=== PATIENT | female | born 1950 | race Caucasian/White ===

== ENCOUNTER 2018-11-23 07:49 | Day surgery (SDC) | payer MEDICARE, OTHER ==
[2018-11-23] MEDS ORDERED: Sodium Chloride 0.9% 10 ML Syringe FLUSH PRN (08:00)
[2018-11-23] MEDS ORDERED: Lactated Ringers 1,000 ML IV SCH (08:00)
[2018-11-23] MEDS ORDERED: Propofol 200 MG/20 ML SDV ONE ×2 (08:14→09:20)
[2018-11-23] MEDS ORDERED: Midazolam 1 MG/ML 2 ML SDV ONE ×2 (08:14→09:20)
--- NOTE | 2018-11-23 09:21 | PCM.HPR ---
H & P Addendum review - H & P Addendum Review Date of Original H & P: 11/09/18 Date Reviewed: 11/23/18 Time Reviewed: 09:05 Patient was Examined: No Changes
--- NOTE | 2018-11-23 09:55 | PCM.OPNOTE ---
- General Post-Op/Procedure Note Date of Surgery/Procedure: 11/23/18 Operative Procedure(s): R CTR Pre Op Diagnosis: R CTS Post-Op Diagnosis: Same Anesthesia Technique: Local, MAC Primary Surgeon: Osiel Joseph Anesthesia Provider: Danika Rodrigues EBAshli in mLs: 0 Complications: None Condition: Good
--- NOTE | 2018-11-23 14:14 | OR ---
Date of Procedure: 11/23/2018 PREOPERATIVE DIAGNOSIS: Right carpal tunnel syndrome. POSTOPERATIVE DIAGNOSIS: Right carpal tunnel syndrome. PROCEDURE: Right carpal tunnel release. ANESTHESIA: Local with IV sedation. PROCEDURE IN DETAIL: The patient was brought to the operating room where IV sedation was administered. Right upper extremity was exsanguinated and the tourniquet inflated. The hand was prepped and draped sterilely. 1% lidocaine was used for local anesthesia. An incision was made in the skin crease over the transverse carpal ligament and extended through the subcutaneous tissue and palmar aponeurosis. The transverse carpal ligament was identified and sharply incised until the median nerve was visible. The ligament was split distally into the palm. Then proximally into the wrist. Inspection and finger palpation revealed all constricting bands to be released. The wound was irrigated and closed with interrupted 4-0 Prolene vertical mattress sutures and antibiotic ointment and a bulky sterile pressure dressing was applied. The patient tolerated the procedure well and returned to recovery in stable condition. ESTIMATED BLOOD LOSS: None. RUBINA HESS MD /[id number]
[2018-11-23 16:32] VITALS: BP 149/69
== END 2018-11-23 11:11 | disposition home or self-care (01) ==
LOC: LL.SDS 07:49
PROVIDERS: ATTEND Surgery
DX: G56.01 Carpal tunnel syndrome, right upper limb (principal); I10 Essential (primary) hypertension; E03.9 Hypothyroidism, unspecified; F32.9 Major depressive disorder, single episode, unspecified; F41.9 Anxiety disorder, unspecified; K58.9 Irritable bowel syndrome, unspecified; F17.200 Nicotine dependence, unspecified, uncomplicated; Z79.899 Other long term (current) drug therapy; Z88.5 Allergy status to narcotic agent; Z91.041 Radiographic dye allergy status
CPT/HCPCS: 01810; J2001; J2250; J2704; J7120

== ENCOUNTER 2020-10-16 08:50 | Day surgery (SDC) | payer MEDICARE, OTHER ==
[2020-10-14 15:56] LABS: CORONAVIRUS COVID-19 NAA NEGATIVE (NEGATIVE)
[~2020-10-16 08:50] MED LIST: Sodium Chloride 0.9% 10 ML Syringe FLUSH PRN
[2020-10-16] MEDS ORDERED: Propofol 200 MG/20 ML SDV ONE ×3 (09:26→11:34)
[2020-10-16] MEDS: Lactated Ringers 1,000 ML IV SCH (10:05)
--- NOTE | 2020-10-16 10:35 | PCM.PN ---
- General Info Date of Service: 10/16/20 - Review of Systems Systems Review Comment:: 69-year-old female here for colonoscopy. She has a history of colon polyps. Her last colonoscopy was over 5 years ago. She denies any recent change in bowel pattern. She is medically stable to proceed today. Her recent history and physical is reviewed and no significant changes are noted. I have discussed the proposed colonoscopy with the patient. Risks discussed. She agrees to proceed. - Patient Data Vitals - Most Recent: Last Vital Signs Temp 98.0 F 10/16/20 10:06 Pulse 74 10/16/20 10:06 Resp 16 10/16/20 10:06 BP 167/93 H 10/16/20 10:06 Pulse Ox 97 10/16/20 10:06 Weight - Most Recent: 90.265 kg Med Orders - Current: Current Medications Lactated Ringer's (Ringers, Lactated) 1,000 mls @ 125 mls/hr IV ASDIRECTED PAUL Last Admin: 10/16/20 10:05 Dose: 125 mls/hr Documented by: Sodium Chloride (Saline Flush) 10 ml FLUSH ASDIRECTED PRN PRN Reason: Keep Vein Open Discontinued Medications Propofol (Diprivan 20 Ml) Confirm Administered Dose 400 mg .ROUTE .STK-MED ONE Stop: 10/16/20 09:27 Sepsis Event Note - Focused Exam Vital Signs: Vital Signs Temp Pulse Resp BP Pulse Ox 10/16/20 10:06 98.0 F 74 16 167/93 H 97 - Problem List Review Problem List Initiated/Reviewed/Updated: Yes - Assessment Assessment:: History of colon polyps - Plan Plan:: Colonoscopy
--- NOTE | 2020-10-16 11:38 | PCM.OPNOTE ---
- General Post-Op/Procedure Note Date of Surgery/Procedure: 10/16/20 Operative Procedure(s): Colonoscopy with Polypectomy Findings: Multiple colon polyps Moderate sized hemorrhoids Pre Op Diagnosis: History of colon polyps Post-Op Diagnosis: Multiple colon polyps. Hemorrhoids Anesthesia Technique: MAC Primary Surgeon: Davis Dorsey Pathology: Multiple colon polyps EBL in mLs: 0 Complications: None Condition: Good
[2020-10-16 13:50] VITALS: BP 149/59; PULSE 64
--- NOTE | 2020-10-16 13:56 | OR ---
Date of Procedure: 10/16/2020 PREOPERATIVE DIAGNOSIS: History of colon polyps. POSTOPERATIVE DIAGNOSES: Colon polyps, hemorrhoids. OPERATIONS PERFORMED: Colonoscopy with polypectomy. INDICATIONS FOR SURGERY: This 69-year-old female is seen today for surveillance colonoscopy. She has a prior history of colon polyps. FINDINGS: The patient has multiple polyps noted on today's exam. She has a cluster of 4 semipedunculated polyps in the mid transverse colon. These range in size from 6 to 8 mm. She has a larger 2 cm pedunculated polyp in the cecum and she has a cluster of polyps in the proximal ascending colon, 4 polyps are in this area. These range in size from 5 to 10 mm. She also has a 6-mm polyp in the sigmoid colon 20 cm from the anal verge. The colon otherwise appears normal. The patient does have moderate-sized internal and external hemorrhoids. PROCEDURE IN DETAIL: The patient was taken to the operating room. She was given intravenous sedation, and with her in the left lateral decubitus position, digital rectal exam was performed showing no rectal masses. The Olympus colonoscope was inserted into the rectum. Retroflexed examination of the rectal canal was performed. The scope was then carefully advanced under direct visualization through the entire length of the colon until the cecum was reached. Cecal acquisition was confirmed by noting normal internal cecal anatomy including the appendiceal orifice and the ileocecal valve. After examining the cecum, the scope was slowly withdrawn sequentially re-examining the colonic segments until the entire colon and rectum had been fully examined. As the above-described polyps were encountered, they were removed with a cautery snare and retrieved. The larger polyp in the cecum was removed piecemeal, but all polyps appeared to be completely removed during the exam. After the procedure was completed and with no sign of any bleeding or other complication, the scope was removed and the patient was taken from the operating room in satisfactory condition. ESTIMATED BLOOD LOSS: Zero. COMPLICATIONS: None. PROGNOSIS: Good. RUBINA Dorsey MD /[id number]
== END 2020-10-16 12:51 | disposition home or self-care (01) ==
LOC: LL.SDS 08:50
PROVIDERS: ATTEND Surgery
DX: D12.2 Benign neoplasm of ascending colon (principal); D12.3 Benign neoplasm of transverse colon; D12.0 Benign neoplasm of cecum; K64.8 Other hemorrhoids; K64.4 Residual hemorrhoidal skin tags; Z20.822 Contact with and (suspected) exposure to COVID-19; E03.9 Hypothyroidism, unspecified; E66.9 Obesity, unspecified; Z86.010 Personal history of colon polyps; I10 Essential (primary) hypertension; F17.210 Nicotine dependence, cigarettes, uncomplicated; Z01.812 Encounter for preprocedural laboratory examination; Z68.33 Body mass index [BMI] 33.0-33.9, adult; E78.00 Pure hypercholesterolemia, unspecified; G35 Multiple sclerosis; Z88.5 Allergy status to narcotic agent; Z91.041 Radiographic dye allergy status; Z79.890 Hormone replacement therapy; Z79.899 Other long term (current) drug therapy; Z79.82 Long term (current) use of aspirin; Z90.49 Acquired absence of other specified parts of digestive tract; Z98.890 Other specified postprocedural states
CPT/HCPCS: 00811; 88305; J2704; J7120; U0002

== ENCOUNTER 2024-03-15 15:19 | Observation (INO) | payer MEDICARE, OTHER ==
[2024-03-15 16:49] LABS: BASOPHILS ABSOLUTE AUTO 0.01 K/uL (0.00-0.20); BASOPHILS PERCENT AUTO 0.1 % (0.0-2.0); EOSINOPHILS ABSOLUTE AUTO 0.05 K/uL (0.00-0.50); EOSINOPHILS PERCENT AUTO 0.4 % (0.0-5.0); HEMATOCRIT 35.8 % (34.0-46.0); HEMOGLOBIN 11.4 g/dL (11.7-15.5); LYMPHOCYTES ABSOLUTE AUTO 0.57 K/uL (0.50-3.50); MEAN CORPUSCULAR HEMOGLOBIN 29.5 pg (28.2-33.3); MEAN CORPUSCULAR HGB CONC 31.8 g/dL (31.7-36.0); MEAN CORPUSCULAR VOLUME 92.5 fL (84.0-98.0); MONOCYTES ABSOLUTE AUTO 1.62 K/uL (0.00-1.00); MONOCYTES PERCENT AUTO 11.4 % (2.0-14.0); NEUTROPHILS ABSOLUTE AUTO 12.02 K/uL (1.40-7.00); NEUTROPHILS PERCENT AUTO 84.1 % (45.0-80.0); PLATELET COUNT,PLT 317 K/uL (150-350); RED BLOOD CELL COUNT 3.87 M/uL (3.77-5.09); RED CELL DISTRIBUTION WIDTH 13.2 % (11.2-14.1); WHITE BLOOD CELL COUNT,WBC 14.3 K/uL (4.0-10.2)
[2024-03-15 17:05] LABS: PROTHROMBIN TIME 9.7 SEC (9.0-11.1)
[2024-03-15 17:09] LABS: ALBUMIN 2.5 g/dL (3.4-5.0); BILIRUBIN TOTAL 0.6 mg/dL (0.2-1.0); C-REACTIVE PROTEIN 18.53 mg/dL (0.05-0.30); CALCIUM 8.8 mg/dL (8.5-10.1); CARBON DIOXIDE,CO2 26.2 mmol/L (21.0-32.0); CREATININE 0.94 mg/dL (0.51-1.17); EST CRCL DRUG DOSING (CG) 49.9 mL/min; PROTEIN TOTAL,TP 6.8 g/dL (6.4-8.2)
[2024-03-15 17:12] LABS: ANION GAP 13.6 meq/L (7-15); POTASSIUM,K 2.8 mmol/L (3.5-5.1)
[2024-03-15 17:28] LABS: APPEARANCE,URINE SLIGHTLY CLOUDY; BILIRUBIN,URINE NEGATIVE (NEGATIVE); COLOR,URINE YELLOW; GLUCOSE,URINE NEGATIVE (NEGATIVE); KETONES,URINE NEGATIVE (NEGATIVE); LEUKOCYTE ESTERASE,URINE LARGE (NEGATIVE); NITRITE,URINE NEGATIVE (NEGATIVE); OCCULT BLOOD,URINE SMALL (NEGATIVE); PROTEIN,URINE 30 mg/dL (NEGATIVE)
[2024-03-15] MEDS ORDERED: Ondansetron 4 MG/2 ML SDV IVPUSH PRN (17:29)
[2024-03-15] MEDS: Potassium Chloride Riders 10 MEQ in Premix Bag 1 BAG IV SCH (17:33)
[2024-03-15] MEDS: Potassium Bicarbonate/Cit Ac 20 MEQ Effervescent Tab PO ONE ×3 (17:33→19:52)
[2024-03-15 17:38] LABS: BACTERIA,URINE MODERATE /HPF (NONE TO FEW); EPITHELIAL CELLS,URINE RARE /LPF; RBC,URINE 0-5 /HPF; WBC,URINE >100 /HPF
[2024-03-15] MEDS: Sodium Chloride 0.9% 1,000 ML IV SCH (17:40)
[2024-03-15] MEDS ORDERED: Famotidine 20 MG Tab PO PRN (19:47)
[2024-03-15] MEDS ORDERED: LORazepam 1 MG Tab PO PRN (19:47)
[2024-03-15] MEDS ORDERED: ALPRAZolam 0.25 MG Tab PO PRN (19:47)
[2024-03-15 20:34] LABS: MAGNESIUM 1.8 mg/dL (1.8-2.4); POTASSIUM,K 3.6 mmol/L (3.5-5.1)
[2024-03-15] MEDS: Acetaminophen 650 MG Tab.ER PO SCH (20:36)
[2024-03-15] MEDS: Gabapentin 300 MG Cap PO SCH (20:36)
[2024-03-15] MEDS: atorvaSTATin 20 MG Tab PO SCH (20:37)
[2024-03-15] MEDS: ALPRAZolam 0.25 MG Tab PO PRN (20:37)
[2024-03-15] MEDS: Cholestyramine/Sucrose Powder 4 GM Packet PO SCH (21:02)
[2024-03-15] MEDS: Non-Formulary Medication 1 Each (Melatonin [Melatonin] 10 MG Tablet) PO SCH (21:02)
[2024-03-15] MEDS: Melatonin 3 MG Tab PO SCH (22:22)
[2024-03-16 07:56] LABS: CARBON DIOXIDE,CO2 32.4 mmol/L (21.0-32.0); CREATININE 1.05 mg/dL (0.51-1.17); EST CRCL DRUG DOSING (CG) 44.67 mL/min; POTASSIUM,K 3.9 mmol/L (3.5-5.1)
[2024-03-16 07:58] LABS: ANION GAP 10.5 meq/L (7-15)
[2024-03-16] MEDS ORDERED: Gabapentin 300 MG Cap PO SCH (08:00)
[2024-03-16] MEDS ORDERED: Non-Formulary Medication 1 Each (Duloxetine [Cymbalta] 60 MG Cap) PO SCH (08:00)
[2024-03-16 08:15] VITALS: BP 152/94; PULSE 98
[2024-03-16] MEDS: prednisoLONE Acetate 1% Ophth Susp 5 ML Bottle EYERT SCH (08:15)
[2024-03-16] MEDS: Lactobacillus Rhamnosus GG (Probiotic) Cap PO SCH (08:16)
[2024-03-16] MEDS: Fish Oil/Omega-3 Fatty Acids 1 Gm Cap PO SCH (08:16)
[2024-03-16] MEDS: DULoxetine 30 MG Cap PO SCH (08:16)
[2024-03-16] MEDS: Calcium Carbonate 500 MG Tab.Chew PO SCH (08:16)
[2024-03-16] MEDS: Lisinopril 10 MG Tab PO SCH (08:17)
[2024-03-16] MEDS: Cholecalciferol (Vitamin D3) 25 MCG Tab PO SCH (08:17)
[2024-03-16] MEDS: Aspirin 81 MG Tab.EC PO SCH (08:18)
[2024-03-16] MEDS: amLODIPine 5 MG Tab PO SCH (08:18)
[2024-03-16] MEDS: Fenofibrate,Micronized 134 MG Cap PO SCH (08:18)
[2024-03-16] MEDS: buPROPion 150 MG Tab.ER PO SCH (08:19)
[2024-03-16] MEDS: Levothyroxine 50 MCG Tab PO SCH (08:19)
[2024-03-16] MEDS: Baclofen 10 MG Tab PO SCH (08:19)
[2024-03-16] MEDS: Cyanocobalamin (Vitamin B12) 1,000 MCG Tab PO SCH (08:19)
[2024-03-16] MEDS: Furosemide 20 MG Tab PO SCH (08:19)
[2024-03-16 09:23] LABS: BASOPHILS ABSOLUTE AUTO 0.03 K/uL (0.00-0.20); BASOPHILS PERCENT AUTO 0.2 % (0.0-2.0); EOSINOPHILS PERCENT AUTO 0.7 % (0.0-5.0); HEMATOCRIT 39.6 % (34.0-46.0); HEMOGLOBIN 12.4 g/dL (11.7-15.5); LYMPHOCYTES ABSOLUTE AUTO 0.78 K/uL (0.50-3.50); LYMPHOCYTES PERCENT AUTO 5.2 % (10.0-50.0); MEAN CORPUSCULAR HEMOGLOBIN 29.2 pg (28.2-33.3); MEAN CORPUSCULAR HGB CONC 31.3 g/dL (31.7-36.0); MEAN CORPUSCULAR VOLUME 93.4 fL (84.0-98.0); MONOCYTES ABSOLUTE AUTO 1.52 K/uL (0.00-1.00); MONOCYTES PERCENT AUTO 10.2 % (2.0-14.0); NEUTROPHILS ABSOLUTE AUTO 12.53 K/uL (1.40-7.00); NEUTROPHILS PERCENT AUTO 83.7 % (45.0-80.0); PLATELET COUNT,PLT 241 K/uL (150-350); RED BLOOD CELL COUNT 4.24 M/uL (3.77-5.09); RED CELL DISTRIBUTION WIDTH 13.4 % (11.2-14.1)
[2024-03-16] MEDS ORDERED: cefTRIAXone 1 GM Vial IM ONE (10:21)
[2024-03-16] MEDS: cefTRIAXone 1 GM in Sodium Chloride 0.9% 100 ML IV ONE (10:53)
[2024-03-16] MEDS: Sodium Chloride 0.9% 10 ML Syringe FLUSH PRN (10:53)
[2024-03-16] MEDS ORDERED: Cholestyramine/Sucrose Powder 4 GM Packet PO SCH (14:00)
== END 2024-03-16 12:54 | disposition home or self-care (01) ==
LOC: LL.ED 15:19 → LL.MS 18:25
PROVIDERS: ADMIT Physician Assistant; ATTEND Physician Assistant
DX: E87.6 Hypokalemia (principal); N39.0 Urinary tract infection, site not specified; I10 Essential (primary) hypertension; E78.00 Pure hypercholesterolemia, unspecified; E03.9 Hypothyroidism, unspecified; F32.A Depression, unspecified; K21.9 Gastro-esophageal reflux disease without esophagitis; F41.9 Anxiety disorder, unspecified; Z79.82 Long term (current) use of aspirin; Z79.890 Hormone replacement therapy; Z79.899 Other long term (current) drug therapy
CPT/HCPCS: 36415; 70450; 80048; 80053; 81001; 83735; 84132; 85025; 85610; 86140; 87086; 87088; 87186; 93005; 96360; 99285; A9270; J0696; J3480; J3490; J7030